=== PATIENT | female | born 1945 | race Two or more races ===

== ENCOUNTER 2023-10-24 08:14 | Outpatient (CLI) | payer OTHER | END 2023-10-24 08:35 | disposition home or self-care (01) | LOC: TOM 08:14 | PROVIDERS: ATTEND Surgery | DX: D37.4 Neoplasm of uncertain behavior of colon (principal); R93.5 Abnormal findings on diagnostic imaging of other abdominal regions, including retroperitoneum; K56.609 Unspecified intestinal obstruction, unspecified as to partial versus complete obstruction ==

== ENCOUNTER 2023-11-07 11:30 | Inpatient (IN) | payer OTHER ==
[~2023-11-07] VITALS: Ht 157.5 cm; Wt 54.4 kg
[2023-11-07] MEDS ORDERED: METFORMIN HCL500 M3 PO (13:44)
[2023-11-07] MEDS ORDERED: NORVASC5 MG PO (13:45)
[2023-11-07] MEDS ORDERED: COZAAR100 MG PO (13:45)
[2023-11-07] MEDS ORDERED: ATORVASTATIN CA10 MG PO (13:45)
[2023-11-07] MEDS ORDERED: RALOXIFENE HCL60 MG PO (13:46)
[2023-11-17 17:55] LABS: HEMATOCRIT 31.3 % (36.0-45.00); MEAN CELL VOLUME 77.4 fL (80.00-100.00); MEAN CORPUSCULAR HEMOGLOBIN 24.7 pg (27.00-32.0); MEAN CORPUSCULAR HGB CONC 31.9 g/dl (32.0-36.0); PLATELET COUNT 183 K/uL (150-450); RED BLOOD COUNT 4.04 M/uL (4.00-6.00); RED CELL DISTRIBUTION WIDTH 17.1 % (11.5-14.5)
[2023-11-17 18:10] LABS: ALBUMIN 3.5 gm/dL (3.4-5.0); CALCIUM 8.5 mg/dL (8.5-10.1); CREATININE SERUM 0.63 mg/dL (0.55-1.02); GFR 91.63; MAGNESIUM 1.8 mg/dL (1.8-2.4); PHOSPHOROUS 2.8 mg/dL (2.5-4.9); POTASSIUM 3.45 mEq/L (3.5-5.1)
[2023-11-18 06:26] LABS: HEMATOCRIT 28.2 % (36.0-45.00); HEMOGLOBIN 9.2 g/dL (12.0-15.00); MEAN CELL VOLUME 75.8 fL (80.00-100.00); MEAN CORPUSCULAR HEMOGLOBIN 24.6 pg (27.00-32.0); MEAN CORPUSCULAR HGB CONC 32.5 g/dl (32.0-36.0); PLATELET COUNT 166 K/uL (150-450); RED BLOOD COUNT 3.72 M/uL (4.00-6.00); RED CELL DISTRIBUTION WIDTH 17.3 % (11.5-14.5)
[2023-11-18 06:45] LABS: ALBUMIN 3.2 gm/dL (3.4-5.0); CALCIUM 7.9 mg/dL (8.5-10.1); CREATININE SERUM 0.53 mg/dL (0.55-1.02); GFR 111.86; MAGNESIUM 1.9 mg/dL (1.8-2.4); POTASSIUM 3.4 mEq/L (3.5-5.1)
[2023-11-20 06:59] LABS: HEMATOCRIT 28.6 % (36.0-45.00); HEMOGLOBIN 9.3 g/dL (12.0-15.00); MEAN CELL VOLUME 76.8 fL (80.00-100.00); MEAN CORPUSCULAR HEMOGLOBIN 25.2 pg (27.00-32.0); MEAN CORPUSCULAR HGB CONC 32.7 g/dl (32.0-36.0); PLATELET COUNT 159 K/uL (150-450); RED BLOOD COUNT 3.72 M/uL (4.00-6.00); RED CELL DISTRIBUTION WIDTH 17.7 % (11.5-14.5)
[2023-11-20 07:19] LABS: BILIRUBIN TOTAL 0.51 mg/dL (0.3-1.2); CREATININE SERUM 0.46 mg/dL (0.55-1.02); GFR 131.72; POTASSIUM 3.4 mEq/L (3.5-5.1)
[2023-11-20 07:57] LABS: PHOSPHOROUS 1.7 mg/dL (2.5-4.9)
[2023-11-20] MEDS ORDERED: HYOSCYAMINE0.125 M1 SL (12:09)
[2023-11-20] MEDS ORDERED: TRAM1TAB98 PO (12:10)
[2023-11-20] MEDS ORDERED: PEPCID AC20 MG PO (12:10)
== END 2023-11-20 13:47 | disposition home or self-care (01) | DRG 331 ==
LOC: O/R 11-17 05:57 → SURH 11-17 10:15 → SURG 11-17 14:24
PROVIDERS: ADMIT Surgery; ATTEND Surgery
PROC: 07BC4ZZ Excision of Pelvis Lymphatic, Percutaneous Endoscopic Approach (ICD-10-PCS; 2023-11-17)
PROC: 0DJD8ZZ Inspection of Lower Intestinal Tract, Via Natural or Artificial Opening Endoscopic (ICD-10-PCS; 2023-11-17)
PROC: 0DBP4ZZ Excision of Rectum, Percutaneous Endoscopic Approach (ICD-10-PCS; 2023-11-17)
PROC: 0DTN4ZZ Resection of Sigmoid Colon, Percutaneous Endoscopic Approach (ICD-10-PCS; principal; 2023-11-17 10:15)
DX: C18.6 Malignant neoplasm of descending colon (principal); R93.5 Abnormal findings on diagnostic imaging of other abdominal regions, including retroperitoneum

== ENCOUNTER → 2023-12-18 | Day surgery (SDC) | payer OTHER ==
[2023-12-16 13:46] LABS: URINE APPEARANCE Cloudy; URINE BILIRRUBIN Negative (NEGATIVE); URINE BLOOD Trace; URINE COLOR Yellow; URINE GLUCOSE Negative (NEGATIVE); URINE LEUKOCYTE Large; URINE NITRATE Negative; URINE PROTEIN Trace (NEGATIVE); URINE UROBILINOGEN 0.2 E.U./dl
[2023-12-16 13:47] LABS: HEMATOCRIT 35.7 % (36.0-45.00); HEMOGLOBIN 11.4 g/dL (12.0-15.00); MEAN CELL VOLUME 81.4 fL (80.00-100.00); MEAN CORPUSCULAR HEMOGLOBIN 26.1 pg (27.00-32.0); PLATELET COUNT 210 K/uL (150-450); RED BLOOD COUNT 4.39 M/uL (4.00-6.00); RED CELL DISTRIBUTION WIDTH 20.9 % (11.5-14.5); URINE BACTERIA 1693.4 uL (0.0-1933); URINE EPITHELIAL CELLS 86.7 uL (0.0-38.8); URINE RBC 18.2 uL (0.0-20.8); URINE WBC 329.3 uL (0.0-23.2)
[2023-12-16 14:17] LABS: INR 0.97; PARTIAL THROMBOPLASTIN TIME 27.8 SECONDS (22.0-34.0); PROTHROMBIN TIME 10.2 SECONDS (9.0-11.5)
[2023-12-16 14:31] LABS: ALBUMIN 4.1 gm/dL (3.4-5.0); BILIRUBIN TOTAL 0.65 mg/dL (0.3-1.2); CALCIUM 9.5 mg/dL (8.5-10.1); CREATININE SERUM 0.59 mg/dL (0.55-1.02); GFR 98.83; GLOBULINA 3.4 G/DL (2.4-3.5); POTASSIUM 3.87 mEq/L (3.5-5.1); TOTAL PROTEIN 7.5 gm/dL (6.4-8.2)
[~2023-12-18] MED LIST: ATORVASTATIN CA10 MG PO; BUPIVACAINE HCL/PF 0.5% 1ML IJ SCH; BUPIVACAINE HCL/PF 0.5% 1ML ONE; CEFAZOLIN SODIUM 1,000 MG VIAL IV SCH; CEFAZOLIN SODIUM 1,000 MG VIAL ONE; COZAAR100 MG PO; HEPARIN SODIUM,PORCINE 500 UNITS/5 ML VIAL IV ONE; HEPARIN SODIUM,PORCINE 500 UNITS/5 ML VIAL IV SCH; HYOSCYAMINE0.125 M1 SL; LIDOCAINE HCL/EPINEPHRINE 10 ML VIAL IJ SCH; LIDOCAINE HCL/EPINEPHRINE 20 ML VIAL IJ ONE; METFORMIN HCL500 M3 PO; NORVASC5 MG PO; PEPCID AC20 MG PO; RALOXIFENE HCL60 MG PO; TRAM1TAB98 PO
== END | disposition home or self-care (01) ==
LOC: ADM 12-16 09:45 → CIR.AMB 07:05
PROVIDERS: ATTEND Surgery
DX: C18.6 Malignant neoplasm of descending colon (principal); I10 Essential (primary) hypertension; Z20.822 Contact with and (suspected) exposure to COVID-19

== ENCOUNTER 2025-07-04 08:00 | Day surgery (SDC) | payer OTHER ==
[2025-07-01 10:09] LABS: URINE APPEARANCE Clear; URINE BILIRRUBIN Negative (NEGATIVE); URINE BLOOD Negative; URINE COLOR Yellow; URINE GLUCOSE Negative (NEGATIVE); URINE KETONE Trace (NEGATIVE); URINE LEUKOCYTE Moderate; URINE NITRATE Negative; URINE PROTEIN Negative (NEGATIVE); URINE UROBILINOGEN 0.2 E.U./dl
[2025-07-01 10:10] LABS: URINE BACTERIA 1107.6 uL (0.0-1933); URINE EPITHELIAL CELLS 87.5 uL (0.0-38.8); URINE RBC 16.5 uL (0.0-20.8); URINE WBC 82.1 uL (0.0-23.2)
[2025-07-01 10:19] LABS: URINE CAST 0.00 uL (0.0-1.40)
[2025-07-01 10:20] LABS: BASO % 0.3 % (0.1-1.2); EOS # 0.03 (0.04-0.54); EOS % 0.5 % (0.7-7.0); LYMPH # 1.55 (1.18-3.74); LYMPH % 23.4 % (19.3-53.1); MEAN PLATELET VOLUME 10.50 fl (9.4-12.4); MONO # 0.43 (0.24-0.82); MONO % 6.5 % (4.7-12.5); NEUT # 4.58 (1.56-6.13); NEUT % 69.0 % (34.0-71.1); RED CELL DISTRIBUTION WIDTH 12.5 % (11.6-14.4)
[2025-07-01 10:29] LABS: INR 0.95
[2025-07-01 10:36] LABS: ALT/SGPT 18.0 U/L (12-78); AST/SGOT 13.0 U/L (15-37); BILIRUBIN TOTAL 0.96 mg/dL (0.3-1.2); BUN CREA RATIO 18.0 (7.0-25.0); CREATININE SERUM 0.68 mg/dL (0.55-1.02); GFR 83.68; GLOBULINA 4.0 G/DL (2.4-3.5); GLUCOSE FASTING 112.0 mg/dL (65-100); OSMOLALITY SERUM 285.0 MOSM/KG (275-295)
[~2025-07-04 08:00] MED LIST changes: -BUPIVACAINE HCL/PF 0.5% 1ML IJ SCH; -BUPIVACAINE HCL/PF 0.5% 1ML ONE; -CEFAZOLIN SODIUM 1,000 MG VIAL IV SCH; -CEFAZOLIN SODIUM 1,000 MG VIAL ONE; -HEPARIN SODIUM,PORCINE 500 UNITS/5 ML VIAL IV ONE; -HEPARIN SODIUM,PORCINE 500 UNITS/5 ML VIAL IV SCH; -LIDOCAINE HCL/EPINEPHRINE 10 ML VIAL IJ SCH; -LIDOCAINE HCL/EPINEPHRINE 20 ML VIAL IJ ONE
[2025-07-04] MEDS ORDERED: TRAM1TAB98 PO (15:09)
[2025-07-04] MEDS ORDERED: CEFAZOLIN SODIUM 1,000 MG VIAL IV ONE (15:15)
== END 2025-07-04 17:00 | disposition home or self-care (01) ==
LOC: CIR.AMB 08:00
PROVIDERS: ATTEND Surgery
DX: C18.6 Malignant neoplasm of descending colon (principal); T82.514A Breakdown (mechanical) of infusion catheter, initial encounter